=== PATIENT | male | born 1945 | race Caucasian/White ===

== ENCOUNTER 2017-06-08 16:42 | Emergency (ER) | payer MEDICARE | END 2017-06-08 17:43 | disposition home or self-care (01) | LOC: EDH 16:42 | DX: S62.341A Nondisplaced fracture of base of second metacarpal bone, left hand, initial encounter for closed fracture (principal); E78.5 Hyperlipidemia, unspecified; Z85.46 Personal history of malignant neoplasm of prostate; W01.0XXA Fall on same level from slipping, tripping and stumbling without subsequent striking against object, initial encounter; Y93.89 Activity, other specified; Y92.89 Other specified places as the place of occurrence of the external cause; Y99.8 Other external cause status | CPT/HCPCS: 29125; 73110; 73130 ==